=== PATIENT | male | born 1970 ===

== ENCOUNTER 2021-12-23 11:15 | Inpatient (IN) | payer OTHER ==
[2022-01-01] MEDS ORDERED: AMLODIPINE BESYL5 MG (08:56)
[2022-01-02] MEDS ORDERED: OXYC1TAB9 PO (10:32)
[2022-01-02] MEDS ORDERED: NORFLEX100MG PO (10:32)
[2022-01-02] MEDS ORDERED: XARELTO10 MG PO (10:32)
[2022-01-02] MEDS ORDERED: GABAPENTIN100 MG PO (10:32)
== END 2022-01-02 14:13 | disposition home or self-care (01) | DRG 470 ==
LOC: O/R 12-31 06:37 → SURH 12-31 11:00 → SURG 12-31 14:57
PROVIDERS: ADMIT Orthopaedic Surgery; ATTEND Orthopaedic Surgery
PROC: 0SRD0J9 Replacement of Left Knee Joint with Synthetic Substitute, Cemented, Open Approach (ICD-10-PCS; principal; 2021-12-31 11:00)
DX: M17.12 Unilateral primary osteoarthritis, left knee (principal); D62 Acute posthemorrhagic anemia; M85.662 Other cyst of bone, left lower leg; I10 Essential (primary) hypertension; Z20.822 Contact with and (suspected) exposure to COVID-19